=== PATIENT | female | born 2005 | race Caucasian/White ===

== ENCOUNTER 2025-05-14 19:35 | Emergency (ER) | payer BC, SELFPAY ==
[2025-05-14 19:38] VITALS: BP 123/77
--- NOTE | 2025-05-14 21:02 | ED.GENMED ---
History of Present Illness
General
Chief Complaint: Chest Pain
Time Seen by Provider: 05/14/25 21:02
History of Present Illness
History of Present Illness:
FOCUSED PAST MEDICAL HISTORY
- Hyperlipidemia, anemia
REVIEW OF OLD RECORDS
- I reviewed the patient's records on her phone from yesterday from the other hospital
Note:
CHIEF COMPLAINT(S)
Chest pain
HISTORY OF PRESENT ILLNESS
The patient is a 19-year-old female who presents with a chief complaint of chest pain that began approximately three to four days ago. She describes the pain as initially localized to the upper left side of the chest, which was exacerbated by
coughing and laughing. The pain has since progressed to involve the ribs, center of the chest, and radiates towards the back. Yesterday, the patient noted a significant intensification of the pain while doing homework, describing it as intense pain
in the middle of the chest extending to the back. Additionally, she reports experiencing tingling and weakness in the left arm, noting difficulty in forming a fist. Although cold hands are a chronic issue for the patient, she reported increased
coldness and tingling in her hands during this episode. She denies any recent severe stress, though admits to a general ongoing sensation of stress. Recent evaluations at [facility] included blood work, D-dimer, troponin levels, a chest X-ray,
and an EKG, with findings noted as unremarkable or negative for acute cardiac issues. The patient expresses concern about the nature of the pain, which occasionally manifests as sharp jabs and inquires about any cardiovascular implications.
PAST MEDICAL AND SURGICAL HISTORY
No significant history reported.
SOCIAL HISTORY
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 She denies smoking, drug use, and recent significant alcohol intake.
REVIEW OF SYSTEMS
- Cardiovascular: Intermittent chest pain, radiating to the arm and back, tingling in the left arm.
- Respiratory: Denies shortness of breath or cough.
- Neurological: Tingling sensation, denies true numbness or loss of muscle function.
- Musculoskeletal: Pain exacerbation upon specific movements.
- General: Reports sensation of stress but no recent severe episodes or panic attacks.
PHYSICAL EXAM
General: Alert, in no acute distress.
Skin: Hands noted to be cold.
Head: Normocephalic, atraumatic.
Neck: Supple, trachea midline.
Eyes, Ears, Nose, Mouth, and Throat: Oral mucosa moist.
Cardiovascular: Normal peripheral perfusion, bounding pulse palpated. No murmurs auscultated. Moderate chest wall tenderness with palpation to the left upper chest wall anteriorly
Respiratory: Respirations are non-labored; good air movement noted bilaterally.
Gastrointestinal: Abdomen nondistended, no tenderness upon palpation.
Back: Normal alignment, no tenderness noted.
Musculoskeletal: Pain upon palpation of chest wall, consistent with costochondritis.
Neurological: No focal neurological deficit observed, intact sensation and strength in limbs. Excellent strength at the wrist and hands bilaterally, excellent sensation, no neurologic deficits noted.
Psychiatric: Cooperative, appropriate mood & affect.
PROBLEM LIST
- Acute: Chest pain (likely costochondritis), Tingling and weakness in left arm.
PLAN
- Reassure the patient regarding her cardiovascular concerns based on negative tests, including EKG, D-dimer, and troponin levels.
- Education on costochondritis and encouragement to use non-prescription strength non-steroidal anti-inflammatory drugs (NSAIDs) such as ibuprofen (600 mg every six hours as needed, with food) to manage inflammation.
- Suggested follow-up with primary care or a oceanography teacher for further evaluation if symptoms persist or worsen.
- Offered name of a oceanography teacher for follow-up and potential consideration of an echocardiogram, though not deemed necessary at this time.
- Discharge from emergency department with instructions on symptom management and follow-up recommendations.
DIFFERENTIAL DIAGNOSIS
The Differential Diagnosis includes, in no particular order and is not limited to:
1. Costochondritis
2. Musculoskeletal strain
3. Gastroesophageal reflux disease
4. Panic disorder or anxiety
5. Myocarditis
6. Pulmonary embolism (though deemed unlikely due to negative D-dimer and chest imaging)
7. Atypical cardiac chest pain
8. Pericarditis
9. Pneumothorax
10. Rib fracture (unrelated trauma not reported)
Disposition:
SUMMARY OF ENCOUNTER
The patient is a 19-year-old female who presented to the emergency department with chest pain that has persisted for approximately three to four days. She describes the pain initially localized to the upper left side of the chest and exacerbated by
activities such as coughing and laughing. The pain has since spread to involve the ribs, center of the chest, and radiates towards the back. Additionally, she has tingling and weakness in the left arm. She has been evaluated at [facility] with
unremarkable findings, including normal troponin, EKG, D-dimer, and chest X-ray, ruling out acute cardiac issues. Based on the assessment, the pain is consistent with costochondritis.
DISPOSITION
Discharge.
ASSESSMENT
The assessment indicates the patients chest pain is likely due to costochondritis, a non-cardiac source of chest pain, as there were no indications of cardiac disease based on the negative tests.
PLAN
The plan involves reassurance regarding the absence of cardiovascular issues based on negative testing, including troponin, EKG, and D-dimer. The patient is advised to use ibuprofen 600 mg every six hours with food to manage inflammation. Follow-up
with her primary care physician or a oceanography teacher is encouraged if symptoms persist or worsen. She has been offered a cardiologists contact information for further consultation if needed.
INDEPENDENT REVIEW OF LABS AND INTERPRETATION OF TESTS
My independent review of the troponin level is normal. My independent review of the EKG is normal. My independent review of the D-dimer is normal. My independent chest x-ray interpretation is normal.
PATIENT EDUCATION AND COUNSELING
The patient was educated about costochondritis, a condition involving inflammation of the cartilage connecting the ribs to the breastbone, and how it is a common benign cause of chest pain, which is generally self-limiting. The importance of using
NSAIDs for pain management and inflammation was explained. She was reassured about the lack of cardiovascular concerns based on recent negative test results.
FOLLOW-UP INSTRUCTIONS
The patient is advised to follow up with her primary care physician or consult a oceanography teacher, especially if symptoms persist or worsen. She was given the contact information for a local oceanography teacher.
MEDICATION RECONCILIATION
Ibuprofen 600 mg every six hours as needed with food was recommended for pain management.
MEDICAL DECISION MAKING
-Complexity of Data Reviewed: The patients acute chest pain has been evaluated with likely diagnosis costochondritis. Differential diagnosis includes costochondritis, musculoskeletal strain, gastroesophageal reflux disease, panic disorder or
anxiety, myocarditis, pulmonary embolism, atypical cardiac chest pain, pericarditis, pneumothorax, rib fracture.
-Data:
Category 1
The following testing was independently reviewed: troponin (normal), EKG (normal), D-dimer (normal), chest x-ray (normal).
-Risk:
Consideration of Admission/Observation: Escalation of care including admission/observation was considered given the complexity and risk of the patients presenting complaint, exam findings, and/or their underlying comorbidities. However, ultimately,
I feel the patient is safe for outpatient management with close follow-up. Reasoning: Work-up reassuring, does not reveal any acute life/organ-threatening processes, patients symptoms well controlled upon reevaluation, reexamination is reassuring,
vitals are stable, patient agreeable with discharge, reliable for follow-up.
DIAGNOSIS
Costochondritis - ICD-10 Code: M94.0
EKG
- Sinus 85, normal axis, no acute ST abnormality
Phy Exam
Physical Exam
Physical Exam:
See HPI
Scores
Heart Score for Chest Pain Patients
STEMI patient?: Not applicable
Course
Orders/Labs/Results
Orders:
Orders
05/14/25 19:41
Electrocardiogram (*1) Urgent
Reason for Study: Chest Pain
EKG- Treatment ONCE
05/14/25 19:41
05/14/25 19:41
Vital Signs
Initial and Last Documented VS:
Initial Vital Signs
Temp Pulse Resp BP Pulse Ox
36.8 C 93 18 123/77 98
05/14/25 19:38 05/14/25 19:38 05/14/25 19:38 05/14/25 19:38 05/14/25 19:38
Last Documented Vital Signs
Temp Pulse Resp BP Pulse Ox
36.8 C 76 16 124/77 99
05/14/25 19:38 05/14/25 21:53 05/14/25 21:53 05/14/25 21:53 05/14/25 21:53
*Pulse Oximetry
SaO2: 98
Patient hypoxic: no
*Critical Care Note
Total Time (30-74mins, 75-104mins- exclusive of procedures): Not Applicable
ED Attending Note
-
Portions of this chart may have been created with voice recognition software.� Occasional wrong word or��sound alike� substitutions may have occurred due to the inherent limitations of voice recognition software.
Discharge Plan
Departure
Patient Disposition: Home (Routine Discharge)
Date of Disposition: 05/14/25
Time of Disposition: 21:29
Patient with high blood pressure during this ER visit?: Yes
Discharge Problem:
Acute costochondritis
Instructions: Costochondritis, BLOOD PRESSURE
Referrals:
Romario Sanchez MD [Active, Cardiology]
Activity Restrictions/Additional Instructions:
I reviewed your blood work from yesterday. Your troponin shows no sign of heart attack and your D-dimer showed no sign of blood clot therefore we did not repeat the studies today. Your EKG was entirely normal today. Your physical examination is
normal however you do have tenderness when I push on the chest wall therefore I suspect you do have costochondritis. I recommend 3-4 [id number] ibuprofen (Motrin) every 8 hours with food for a few days. Return here if worse.
Interventions
Interventions:
*Risk Screen - Suicide Last Done: 05/14/25 19:40
*General Assessment Last Done: 05/14/25 19:39
*Neglect/Abuse Screening Last Done: 05/14/25 19:40
*ED COVID-19 Vaccine History Last Done: 05/14/25 19:39
*ED Influenza Vaccine History Last Done: 05/14/25 19:39
*Nursing Disposition Last Done: 05/14/25 21:55
ED- Cardiac Assessment Last Done: 05/14/25 21:54
Discharge Date and Time
Discharge Date/Time: 05/14/25 21:55
Print Language: CHINESE
[2025-05-14 21:53] VITALS: BP 124/77
== END 2025-05-14 21:55 | disposition home or self-care (01) ==
LOC: EMR 19:35
PROVIDERS: EMERGENCY PHYSICIAN Emergency Medicine; FAMILY PHYSICIAN Family Medicine
DX: M94.0 Chondrocostal junction syndrome [Tietze] (principal); E78.00 Pure hypercholesterolemia, unspecified; D64.9 Anemia, unspecified
CPT/HCPCS: 99283; 93005